=== PATIENT | female | born 1970 | race Caucasian/White ===

== ENCOUNTER 2016-08-17 11:36 | Emergency (ER) | payer OTHER ==
[2016-08-17 11:42] VITALS: BP 126/79; PULSE 70; TEMP 98.7; BMI 42.5
--- NOTE | 2016-08-17 11:58 | PDOC ---
History of Present Illness - General Chief Complaint: Pain, Acute Stated Complaint: FALL, RT KNEE PAIN, HEADACHES Time Seen by Provider: 08/17/16 11:47 History Source: Patient Exam Limitations: No Limitations - History of Present Illness Initial Comments: 08/17/16 patient came to emergency department for evaluation of right knee pain status post fall yesterday. States was going to the bathroom, when slipped while sitting on to the toilet causing her right leg to bend and twist outwards. States since that time is had swelling and severe pain to her knee. Is ambulatory but walks with limp. States strained her right shoulder at the same time. Took some Advil last night but is taken no medication since. Occurred: reports: yesterday Severity: reports: moderate Pain Location: reports: lower extremity (right knee) Method of Injury: Yes: fall Modifying Factors: improves with: None, cold therapy Loss of Consciousness: no loss of consciousness Associated Symptoms (Fall): denies symptoms Past History - Travel Traveled outside of the country in the last 30 days: No Close contact w/someone who was outside of country & ill: No - Past Medical History Allergies/Adverse Reactions: Allergies Allergy/AdvReac Type Severity Reaction Status Date / Time No Known Allergies Allergy Verified 08/17/16 11:38 Home Medications: Ambulatory Orders Oxycodone HCl/Acetaminophen [Percocet 5-325 mg Tablet -] 1 - 2 tab PO Q4H PRN # 7 tablet MDD 4 08/17/16 - Psycho/Social/Smoking Cessation Hx Suicidal Ideation: No Smoking History: Never smoked Have you smoked in the past 12 months: No Information on smoking cessation initiated: No Hx Alcohol Use: No Drug/Substance Use Hx: No Trauma Specific PMHX - Complaint Specific PMHX Arthritis: No Back Injury: No Neck Injury: No Review of Systems - Review of Systems Able to Perform ROS?: Yes Is the patient limited Welsh proficient: Yes Constitutional: Yes: Symptoms Reported, See HPI HEENTM: No: Symptoms Reported Respiratory: No: Symptoms reported : No: Symptoms Reported Musculoskeletal: Yes: Symptoms Reported, See HPI, Joint Pain (right knee and right shoulder), Joint Swelling All Other Systems: Reviewed and Negative *Physical Exam - Vital Signs Last Vital Signs Temp Pulse Resp BP Pulse Ox 98.7 F 70 20 126/79 98 08/17/16 11:38 08/17/16 11:38 08/17/16 11:38 08/17/16 11:38 08/17/16 11:38 - Physical Exam General Appearance: Yes: Nourished, Appropriately Dressed, Apparent Distress, Mild Distress HEENT: positive: BECKIE, Normal ENT Inspection, TMs Normal, Pharynx Normal Neck: positive: Supple. negative: Tender Respiratory/Chest: positive: Lungs Clear, Normal Breath Sounds Musculoskeletal: positive: Decreased Range of Motion (2 right shoulder, able to supinate, and pronate at elbow, but abduction and forward flexion shoulder is approximately 45-90 with reproduced tenderness at further distance.). negative : Normal Inspection, CVA Tenderness, Vertebral Tenderness Extremity: positive: Normal Capillary Refill, Tender, Swelling. negative: Normal Range of Motion (poor range of motion to right knee secondary to tenderness at patella. Has some swelling greater than the left leg although legs are morbidly obese. Patella is mobile without crepitus or step-offs, has no ballottement. Has no reproduced tenderness with varus or valgus maneuvers. Neurovascular intact to foot.) Integumentary: positive: Normal Color, Dry, Warm, Pale, Swelling. negative: Ecchymosis, Bruising Neurologic: positive: head of precision targeting II-XII NML intact, Fully Oriented, Alert, Normal Response Progress Note - Progress Note Progress Note: Raise negative for fracture dislocation. Will treat with knee immobilizer, NSAIDs, and given #7 Percocet tablets for severe pain. Encourage to follow-up with orthopedist tomorrow *DC/Admit/Observation/Transfer Diagnosis at time of Disposition: Knee sprain Qualifiers: Encounter type: initial encounter Involved ligament of knee: unspecified ligament Laterality: right Qualified Code(s): S83.91XA - Sprain of unspecified site of right knee, initial encounter - Discharge Dispostion Disposition: HOME Condition at time of disposition: Stable Admit: No - Prescriptions Prescriptions: Oxycodone HCl/Acetaminophen [Percocet 5-325 mg Tablet -] 1 - 2 tab PO Q4H PRN # 7 tablet MDD 4 PRN Reason: Pain - Referrals Referrals: Alexis Ortez MD [Primary Care Provider] - Boston Blackburn MD [Staff Physician] - - Patient Instructions Additional Instructions: Rest, ice to area on and off for 15 minutes 4-6 times a day Avoid heavy lifting or exercise until pain and swelling is resolved or until further directed Keep area highly elevated to reduce swelling Use splints/Michelet wrap as directed Followup with orthopedist in one to 2 days if not improving, if significantly improved may wait one week for followup with orthopedist May use ibuprofen 2-200 mg tablets every 6 hours as needed for pain - Post Discharge Activity Work/School Note: Back to Work
[2016-08-17] MEDS ORDERED: KETOROLAC TROMETHAMINE 60 MG/2 ML VIAL IM ONE (12:22)
[2016-08-17] MEDS ORDERED: KETOROLAC TROMETHAMINE 60 MG/2 ML VIAL ONE (12:23)
== END 2016-08-17 13:10 | disposition home or self-care (01) ==
LOC: JERFT 11:36
PROC: 3E0233Z Introduction of Anti-inflammatory into Muscle, Percutaneous Approach (ICD-10-PCS; principal; 2016-08-17)
DX: S83.8X1A Sprain of other specified parts of right knee, initial encounter (principal); W18.11XA Fall from or off toilet without subsequent striking against object, initial encounter; Y93.E8 Activity, other personal hygiene; Y92.012 Bathroom of single-family (private) house as the place of occurrence of the external cause
CPT/HCPCS: 73562-TC-RT; 96372; 99281-25

== ENCOUNTER 2019-06-02 02:54 | Emergency (ER) | payer OTHER ==
[2019-06-02 03:09] VITALS: BP 130/80; PULSE 80; TEMP 98.3; BMI 41.5
--- NOTE | 2019-06-02 03:33 | PDOC ---
History of Present Illness - General Chief Complaint: Rash Stated Complaint: RASH History Source: Patient Exam Limitations: No Limitations Past History - Past Medical History Allergies/Adverse Reactions: Allergies Allergy/AdvReac Type Severity Reaction Status Date / Time No Known Allergies Allergy Verified 06/02/19 03:03 - Psycho Social/Smoking Cessation Hx Smoking History: Never smoked Have you smoked in the past 12 months: No Hx Alcohol Use: No Drug/Substance Use Hx: No *Physical Exam - Vital Signs Last Vital Signs Temp Pulse Resp BP Pulse Ox 98.3 F 80 18 130/80 99 06/02/19 02:59 06/02/19 02:59 06/02/19 02:59 06/02/19 02:59 06/02/19 02:59 Discharge - Follow up/Referral Referrals: Alexis Ortez MD [Primary Care Provider] - - Patient Discharge Instructions - Post Discharge Activity
--- NOTE | 2019-06-02 03:58 | PDOC ---
Attending Attestation - Resident Resident Name: Aundrea Jacome - ED Attending Attestation I have performed the following: I have examined & evaluated the patient, The case was reviewed & discussed with the resident, I agree w/resident's findings & plan - HPI HPI: 06/02/19 04:18 see resident hpi - Physicial Exam PE: 06/02/19 04:18 agree with resident exam - Medical Decision Making 06/02/19 04:18 49-year-old female with rash to the left torso Exam consistent with herpes zoster Plan for dexamethasone 10 mg IM and DC with acyclovir
[2019-06-02] MEDS ORDERED: DEXAMETHASONE SOD PHOSPHATE 4 MG/1 ML VIAL IM ONE (04:40)
[2019-06-02] MEDS ORDERED: ACETAMINOPHEN 500 MG TABLET (FP) PO ONE (04:44)
[2019-06-02] MEDS ORDERED: DEXAMETHASONE SOD PHOSPHATE 10 MG/1 ML VIAL ONE (04:47)
[2019-06-02] MEDS ORDERED: DEXAMETHASONE SOD PHOSPHATE 10 MG/1 ML VIAL IM ONE (04:47)
[2019-06-02] MEDS ORDERED: KETOROLAC TROMETHAMINE 30 MG/1 ML VIAL ONE (04:48)
[2019-06-02] MEDS ORDERED: KETOROLAC TROMETHAMINE 30 MG/1 ML VIAL IM ONE (04:48)
--- NOTE | 2019-06-02 05:44 | PDOC ---
History of Present Illness - General Chief Complaint: Rash Stated Complaint: RASH Time Seen by Provider: 06/02/19 03:51 - History of Present Illness Initial Comments: 06/02/19 05:45 49 y/o F hx of GERD, presenting today with a rash on her back and left breast of 2 days duration. The initial rash was on her back and she notices a rash on her left breast today. She has experienced burning 10/10 pain in the area affected by the rash. She denies any fevers, chills, nausea, vomiting, diarrhea.She denies any sick contact, allergic reactions,headache, numbness or tingling. Past History - Past Medical History Allergies/Adverse Reactions: Allergies Allergy/AdvReac Type Severity Reaction Status Date / Time No Known Allergies Allergy Verified 06/02/19 03:03 Home Medications: Ambulatory Orders Acyclovir [Zovirax -] 800 mg PO 5XD #35 tablet 06/02/19 Methylprednisolone [Medrol Dose Elmer] 4 mg PO ASDIR #21 tablet 06/02/19 - Psycho Social/Smoking Cessation Hx Smoking History: Never smoked Have you smoked in the past 12 months: No Hx Alcohol Use: No Drug/Substance Use Hx: No Review of Systems - Review of Systems Constitutional: No: Chills, Fever HEENTM: No: Eye Pain, Blurred Vision Respiratory: No: Cough, Shortness of Breath Cardiac (ROS): No: Chest Pain ABD/GI: No: Abdominal Distended, Nausea : No: Burning, Dysuria Musculoskeletal: Yes: Back Pain, Muscle Weakness Integumentary: Yes: Rash. No: Sweating Neurological: No: Headache Hematologic/Lymphatic: No: Blood Clots, Easy Bleeding *Physical Exam - Vital Signs Last Vital Signs Temp Pulse Resp BP Pulse Ox 98.3 F 80 18 130/80 99 06/02/19 02:59 06/02/19 02:59 06/02/19 02:59 06/02/19 02:59 06/02/19 02:59 - Physical Exam General Appearance: Yes: Nourished, Appropriately Dressed. No: Apparent Distress HEENT: positive: EOMI, Normal Voice, Symmetrical. negative: Scleral Icterus (R) , Scleral Icterus (L) Neck: positive: Trachea midline, Supple. negative: Tender Respiratory/Chest: positive: Lungs Clear, Normal Breath Sounds. negative: Chest Tender, Respiratory Distress Cardiovascular: positive: Regular Rhythm, Regular Rate, S1, S2 Gastrointestinal/Abdominal: positive: Normal Bowel Sounds, Soft Extremity: positive: Normal Capillary Refill, Normal Inspection, Normal Range of Motion Integumentary: positive: Dry, Warm, Other (vesicular blistering and lesions on upper left back in dermatomal distribution. rash on left breast as well) Neurologic: positive: Fully Oriented, Alert, Normal Mood/Affect ED Treatment Course - Medications Given in the ED: ED Medications Discontinued Medications Generic Name Dose Route Start Last Admin Trade Name Sahil PRN Reason Stop Dose Admin Acetaminophen 975 mg 06/02/19 04:44 06/02/19 04:48 Tylenol - PO 06/02/19 04:45 Not Given ONCE ONE Dexamethasone Sodium Phosphate 4 mg 06/02/19 04:40 06/02/19 04:48 Decadron Injection - IM 06/02/19 04:41 Not Given ONCE ONE Dexamethasone Sodium Phosphate 10 mg 06/02/19 04:47 06/02/19 04:58 Decadron Injection - IM 06/02/19 04:48 10 mg ONCE ONE Administration Ketorolac Tromethamine 30 mg 06/02/19 04:48 06/02/19 04:58 Toradol Injection - IM 06/02/19 04:49 30 mg ONCE ONE Administration Medical Decision Making - Medical Decision Making 06/02/19 05:48 49 y/o F hx of GERD, presenting today with a rash on her back and left breast of 2 days duration. Toradol for pain Dexamethasone 10 mg IV pt feeling better after receiving medications d/c with medrol dose pack to begin on Thursday. and 7 day course of acyclovir. Discharge - Discharge Information Problems reviewed: Yes Clinical Impression/Diagnosis: Shingles Qualifiers: Herpes zoster complications: without complications Qualified Code(s): B02.9 - Zoster without complications Condition: Stable Disposition: HOME - Admission No - Additional Discharge Information Prescriptions: Acyclovir [Zovirax -] 800 mg PO 5XD #35 tablet Methylprednisolone [Medrol Dose Elmer] 4 mg PO ASDIR #21 tablet - Follow up/Referral Referrals: Alexis Ortez MD [Primary Care Provider] - - Patient Discharge Instructions Patient Printed Discharge Instructions: DI for Shingles Additional Instructions: You were seen in the ER for a rash that is likely shingles You have been prescribed the following medrol dose elmer acyclovir Take the medication as directed. DO NOT START TAKING THE MEDROL DOSE ELMER UNTIL THURSDAY. You were given steroids and pain medication in the emergency department. YOu can keep your appointments with your primary care tomorrow as scheduled -Return to the ER if any of the symptoms you presented with today worsened. of if the following occur fever, chills. spreading/worsening rash. - Post Discharge Activity
== END 2019-06-02 05:52 | disposition home or self-care (01) ==
LOC: JER 02:54
PROC: 3E0233Z Introduction of Anti-inflammatory into Muscle, Percutaneous Approach (ICD-10-PCS; principal; 2019-06-02)
PROC: 3E0233Z Introduction of Anti-inflammatory into Muscle, Percutaneous Approach (ICD-10-PCS; 2019-06-02)
DX: B02.9 Zoster without complications (principal); K21.9 Gastro-esophageal reflux disease without esophagitis
CPT/HCPCS: 99282-25; J1100

== ENCOUNTER 2019-09-21 08:28 | Emergency (ER) | payer OTHER ==
[2019-09-21 08:32] VITALS: BP 138/75; PULSE 64; TEMP 98.2; BMI 43.4
--- NOTE | 2019-09-21 10:23 | PDOC ---
History of Present Illness - General Chief Complaint: Injury Stated Complaint: SLIP AND FALL Time Seen by Provider: 09/21/19 09:59 - History of Present Illness Initial Comments: 09/21/19 10:21 CHIEF COMPLAINT: syncope, fall, head trauma HISTORY OF PRESENT ILLNESS: 49 yo F with no significant PMH presents to ED s/p syncopal episodes, fall, and LOC last night. Patient reports pasisng out lats night while eating cereal and believes she hit both the back of her head and the front of her head and c/o of head and neck pain at this time. The fall was witnessed, length of LOC unknown. Per patient she has had 3-4 syncopal episodes since 2 years ago s/p dysphagia, per GI MD Ifeanyi s/p upper endoscopy she has had syncopal episodes secondary to "allergies or something." PCP Ashley Solis at [facility] (neg HIV status). No recent travel or sick contacts. PAST MEDICAL HISTORY: dysphagia FAMILY HISTORY: Denies SOCIAL HISTORY: Denies tobacco, alcohol, illicit drug use. SURGICAL HISTORY: Denies ALLERGIES: No known drug allergies REVIEW OF SYSTEMS General/Constitutional: Denies fever or chills. Denies weakness, weight change. HEENT: Denies change in vision. Denies ear pain or discharge. Denies sore throat. Cardiovascular: Denies chest pain or shortness of breath. Respiratory: Denies cough, wheezing, or hemoptysis. Gastrointestinal: Denies nausea, vomiting, diarrhea or constipation. Denies rectal bleeding. Genitourinary: Denies dysuria, frequency, or change in urination. Musculoskeletal: Denies joint or muscle swelling or pain. Denies neck or back pain. Skin and breasts: Denies rash or easy bruising. Neurologic: Syncopal episode last night. Mild frontal headache now. Denies vertigo, or loss of sensation. Psychiatric: Denies depression or anxiety. PHYSICAL EXAM General Appearance: Well-appearing, appropriately dressed. No apparent distress , no intoxication. HEENT: EOMI, PERRLA, normal ENT inspection, normal voice, TMs normal, pharynx normal. No conjunctival pallor. No photophobia, scleral icterus. Neck: Supple. Trachea midline. No tenderness, rigidity, carotid bruit, stridor , lymphadenopathy, or thyromegaly. Respiratory/Chest: Lungs CTAB. No shortness of breath, chest tenderness, respiratory distress, accessory muscle use. No crackles, rales, rhonchi, stridor , wheezing, dullness Cardiovascular: RRR. S1, S2. No JVD, murmur, bradycardia, tachycardia. Vascular Pulses: Dorsalis-Pedis (R): 2+, Dorsalis-Pedis (L): 2+ Gastrointestinal/Abdominal: Normal bowel sounds. Abdomen soft, non-distended. No tenderness or rebound tenderness. No organomegaly, pulsatile mass, guarding , hernia, hepatomegaly, splenomegaly. Lymphatic: No adenopathy, tenderness. Musculoskeletal/Extremities: Normal inspection. FROM of all extremities, normal capillary refill. Pelvis Stable. No CVA tenderness. No tenderness to extremities, pedal edema, swelling, erythema or deformity. Integumentary: Appropriate color, dry, warm. No cyanosis, erythema, jaundice or rash Neurologic: software consultant II-XII intact. Fully oriented, alert. Appropriate mood/affect. Motor strength 5/5. No appreciable EOM palsy, facial droop or sensory deficit.A &Ox3, follow commands, respond appropriately CN2-12: conjugate gaze, pupil round, equal and reactive to light. Visual field full to confrontation. EOMI without nystagmus, pursuit is smooth without saccade. Facial sensation and muscle activation intact bilaterally. Hearing intact bilaterally. Palate elevate symmetrically. Shoulder shrug and neck turn full strength. Tongue protrude midline. Motor: UE and LE strength 5/5 throughout bilaterally. Muscle tone and bulk normal. L shoulder abd 5/5 elbow F/E 5/5 wrist F/E 5/5 finger F/E 5/5 R shoulder abd 5/5 elbow F/E 5/5 wrist F/E 5/5 finger F/E 5/5 L hip F/E 5/5 knee F/E 5/5 ankle F/E 5/5 R hip F/E 5/5 knee F/E 5/5 ankle F/E 5/5 Sensory: pin prick & temp : BUE & BLE intact and equal bilaterally Vibration & propioception: intact bilaterally at 1st MCP and MTP joints. no sensory level noted on trunk Reflex: biceps brachioradialis triceps patellar achilles L 2+ 2+ 2+ 2+ 2+ R 2+ 2+ 2+ 2+ 2+ Plantar reflex downwards bilaterally. Cerebellar: Rapid-alternating movement with regular rhythm without bradykinesia. [id number] and [id number] intact bilaterally without dysmetria or overshoot. Gait narrow based. No shuffling. Full hip flexion and knee flexion. Negative Romberg No involuntary movement noted. No pronator drift. No clonus. Past History - Past Medical History Allergies/Adverse Reactions: Allergies Allergy/AdvReac Type Severity Reaction Status Date / Time No Known Allergies Allergy Verified 09/21/19 08:31 Home Medications: Ambulatory Orders Acetaminophen [Tylenol Arthritis] 1 tab PO DAILY 06/30/19 Albuterol Sulfate Inhaler - [Ventolin HFA Inhaler -] 1 - 2 inh PO QID #1 inhaler 06/30/19 Calcium Carbonate [Tums] 1 tab PO BID 06/30/19 Gabapentin [Neurontin -] 100 mg PO HS #30 capsule 06/30/19 Cyclobenzaprine HCl 10 mg PO HS #14 tablet 09/21/19 Naproxen 500 mg PO BID #30 tablet 09/21/19 Anemia: No Asthma: Yes (in childhood "grew out of it but it's coming back") Cancer: No Cardiac Disorders: No CVA: No COPD: No CHF: No Dementia: No Diabetes: No GI Disorders: Yes ("heartburn", "food gets stuck and i pass out", "ulcer") Disorders: Yes (frequent urination, not painful) HTN: No Hypercholesterolemia: No Liver Disease: No Seizures: No Thyroid Disease: No - Psycho Social/Smoking Cessation Hx Smoking History: Never smoked Have you smoked in the past 12 months: No Hx Alcohol Use: No Drug/Substance Use Hx: No Trauma Specific PMHX - Complaint Specific PMHX Arthritis: No Back Injury: No Neck Injury: No *Physical Exam - Vital Signs Last Vital Signs Temp Pulse Resp BP Pulse Ox 98.2 F 64 16 138/75 98 09/21/19 08:29 09/21/19 08:29 09/21/19 08:29 09/21/19 08:29 09/21/19 08:29 ED Treatment Course - LABORATORY CBC & Chemistry Diagram: 09/21/19 10:38 09/21/19 10:38 - RADIOLOGY Radiology Studies Ordered: Category Date Time Status CERVICAL SPINE CT W/O CONTR [CT] Stat CT Scan 09/21/19 09:[address] WITHOUT CONTRAST [CT] Stat CT Scan 09/21/19 09:59 Ordered Medical Decision Making - Medical Decision Making 09/21/19 11:47 49 yo F with no significant PMH presents to ED s/p syncopal episodes, fall, and LOC last night. -EKG -labs -head/cspine CT EKG with sinus scooter, no STEMI. -labs pending 09/21/19 12:30 head/c-spine CTs negative. incidental finding of thyroid nodule seen on CT, chronic dysphagia possibly secondary to thyroid nodule. pt advised to f/u with endocrinology. Discharge - Discharge Information Problems reviewed: Yes Clinical Impression/Diagnosis: Thyroid nodule Syncope Qualifiers: Syncope type: unspecified Qualified Code(s): R55 - Syncope and collapse Condition: Stable Disposition: HOME - Admission No - Additional Discharge Information Prescriptions: Cyclobenzaprine HCl 10 mg PO HS #14 tablet Naproxen 500 mg PO BID #30 tablet - Follow up/Referral Referrals: Ashley Solis NP [Primary Care Provider] - Gema Velazco MD [Staff Physician] - - Patient Discharge Instructions Patient Printed Discharge Instructions: DI for Thyroid Nodule, DI for Syncope in Adults (Fainting) Additional Instructions: Please take medications as prescribed and follow up with endocrinology within the next week as discussed. If you develop any new or worsening symptoms, please return to the ER. - Post Discharge Activity
[2019-09-21] MEDS ORDERED: ONDANSETRON 4 MG/2 ML VIAL IVPUSH ONE (10:27)
[2019-09-21] MEDS ORDERED: ONDANSETRON 4 MG/2 ML VIAL ONE (10:34)
[2019-09-21 11:51] LABS: EOS % 7.1 % (0-4.5); HEMATOCRIT 43.3 % (32.4-45.2); HEMOGLOBIN 14.7 GM/dL (10.7-15.3); MCH 31.7 pg (25.7-33.7); MEAN CELL VOLUME 93.1 fl (80-96); MEAN PLT VOLUME 9.4 fl (7.5-11.1); MONO % 6.6 % (3.8-10.2); NEUT % 57.3 % (42.8-82.8); PLATELET COUNT 306 K/MM3 (134-434); RBC 4.65 M/mm3 (3.60-5.2); RDW 12.6 % (11.6-15.6); WHITE BLOOD COUNT 7.1 K/mm3 (4.0-10.0)
[2019-09-21 12:16] LABS: ALBUMIN 3.7 g/dl (3.4-5.0); BILIRUBIN,TOTAL 1.1 mg/dL (0.2-1); BLOOD UREA NITROGEN 12.5 mg/dL (7-18); CALCIUM 9.1 mg/dL (8.5-10.1); CREATININE 0.8 mg/dL (0.55-1.3); POTASSIUM 4.4 mmol/L (3.5-5.1); TOT PROT 7.1 g/dl (6.4-8.2)
--- NOTE | 2019-09-22 15:14 | EKG ---
Test Reason : Blood Pressure : / mmHG Vent. Rate : 054 BPM Atrial Rate : 054 BPM P-R Int : 150 ms QRS Dur : 088 ms QT Int : 430 ms P-R-T Axes : 058 022 033 degrees QTc Int : 407 ms SINUS BRADYCARDIA WITH SINUS ARRHYTHMIA POSSIBLE LEFT ATRIAL ENLARGEMENT CANNOT RULE OUT ANTERIOR INFARCT , AGE UNDETERMINED ABNORMAL ECG NO PREVIOUS ECGS AVAILABLE Confirmed by MITZI OCONNELL MD ([id number]) on 09/22/2019 3:13:52 PM Referred By: Confirmed By:MITZI OCONNELL MD
== END 2019-09-21 13:52 | disposition home or self-care (01) ==
LOC: JER 08:28
PROC: 3E033GC Introduction of Other Therapeutic Substance into Peripheral Vein, Percutaneous Approach (ICD-10-PCS; principal; 2019-09-21)
DX: E04.1 Nontoxic single thyroid nodule (principal); R55 Syncope and collapse
CPT/HCPCS: 36415; 70450-TC; 72125-TC; 80053; 84703; 85025; 93005; 93010; 96374; 99285-25